=== PATIENT | male | born 1945 | race Two or more races ===

== ENCOUNTER 2024-07-11 02:39 | Emergency (ER) | payer MEDICARE, MEDICAID, SELFPAY ==
[2024-07-11 02:46] VITALS: BP 115/61; PULSE 71; PULSE 84; RESP 18; TEMP 36.8; O2SAT 100; O2SAT 98; BMI 21.7
--- NOTE | 2024-07-11 03:05 | XR_ITS ---
Examination: CT cervical spine without contrast 2-D sagittal reconstructions 2-D coronal reconstructions 3-D reconstructions. Exam date and time:July 11, 2024 0352 hrs. Indications: Ground-level fall today with injury to the neck, neck pain CTDI:vol (mGy) 14.36 DLP: (mGycm) 334 Technique: Multiple 2 mm axial sections of the cervical spine have been obtained. The coronal and sagittal reconstructions have been obtained. 3-D reconstructions have been obtained. Low dose protocols were performed. One or more of the following dose reduction techniques were used; automated exposure control, adjustment of the mA and/or KV according to patient size, use of iterative reconstruction technique. Findings: Axial sections demonstrate intact base of the skull. Grade 1 anterolisthesis C5 on C6 Advanced degenerative disc disease C5-C6, C6-C7 C1 exhibit satisfactory relationship to the odontoid. No acute cervical vertebral body fracture seen. Alignment posterior spinous processes satisfactory. Impression: No acute cervical fracture.
--- NOTE | 2024-07-11 03:05 | XR_ITS ---
Examination: CT brain head without contrast. 2-D sagittal coronal reconstructions Date and time of exam:July 11, 2024 0350 hrs. Indications: Ground-level fall 2 hours ago with injury to the head, head pain CTDI: vol (mGy):49.40 DLP: (mGycm):974 Technique: Multiple CT axial sections of the brain have been obtained, 5 mm slice thickness. Contrast has not been administered. 2-D sagittal, coronal reconstructions have been obtained Low dose protocols were performed. One or more of the following dose reduction techniques were used; automated exposure control, adjustment of the mA and/or KV according to patient size, use of iterative reconstruction technique. Findings: No significant ventricular enlargement. Intra-axial or extra-axial hemorrhage density is not seen. No mass effect or midline shift Basal cisterns are not remarkable. Fourth ventricle is midline. Cranial vault intact. Impression: Negative for acute hemorrhage, mass effect or midline shift
--- NOTE | 2024-07-11 03:13 | PD.EDRME ---
Rapid Medical Screening Exam RME Arrival date/time: 07/11/24 02:39 78 year old male present to ED for c/o of head injury today I have greeted and performed a focused initial assessment of this patient. A comprehensive ED assessment and evaluation of the patient, analysis of all test results, and completion of the medical decision making process will be conducted by additional ED providers. Chief Complaint: Fall Time Seen by Provider: 07/11/24 03:02 Vital signs: Vital Signs Temperature 98.2 F 07/11/24 02:46 Pulse Rate 71 07/11/24 02:46 Respiratory Rate 18 07/11/24 02:46 Blood Pressure 115/61 07/11/24 02:46 Pulse Oximetry (%) 100 07/11/24 02:46 Oxygen Delivery Method Room Air 07/11/24 02:46
[2024-07-11 03:26] VITALS: BP 130/81; PULSE 67; RESP 18; O2SAT 98
--- NOTE | 2024-07-11 03:36 | PC.NURSE ---
PT PLACED IN GOWN AND ASSESSED.PT STATES HE WAS AMBULATING AT HOME WHEN HE TRIPPED OVER THE LEG OF A CHAIR AND FELL AND HIT THE BACK OF HIS HEAD. PT DENIES LOC, ANY OTHER PAIN, AND BLOOD THINNERS. PT ALERT AND ORIENTED. PT WAITING FOR CT OF HEAD. WILL CONTINUE WITH PLAN OF CARE
--- NOTE | 2024-07-11 04:40 | PRELIM_ITS ---
CT scan of the head without intravenous contrast (axial sections with sagittal and coronal reformats) July 11, 2024 at 0350 hoursClinical History: Head injury.Comparison: No prior study is available for comparison. Findings:There is no evidence of intracranial hemorrhage, mass effect or midline jarvis ft. There are periventricular white matter hypodensities, compatible with chronic small vessel ischem ia. There is moderate volume loss. The calvarium is intact. The mastoid air cells are clear. There is mild mucosal thickening in the left maxillary sinus.Impression:No evidence of intracranial hemorrhag e, midline shift or calvarial fracture. Periventricular chronic small vessel ischemia and volume loss . Report Electronically Signed By: Murphy Perry 07/11/2024 4:40:11 AM [EST]
--- NOTE | 2024-07-11 04:43 | PRELIM_ITS ---
CT scan of the cervical spine without intravenous contrast (axial sections with sagittal and coronal reformats) July 11, 2024 at 0352 hours Clinical History: Head injury status post glf today. Jagjit risrupert: No prior study is available for comparison. Findings:There is no fracture or subluxation. Marleny re degenerative changes are noted in the form of multilevel marginal osteophytes, decreased disc spac es, facet arthropathy and fusion of the C5-T1 vertebral bodies causing grade I anterolisthesis of C5 over C6, moderate spinal canal narrowing and severe bilateral neural foraminal narrowing. Posterior l ongitudinal ligamentous ossification is noted from ??2 through ??3 levels. There are chronic deformi ties of the vertebral bodies of the cervical and thoracic spine. The prevertebral soft tissues are un remarkable.Impression:No evidence of fracture or subluxation.Degenerative changes as described. Repo rt Electronically Signed By: Murphy Perry 07/11/2024 4:43:19 AM [EST]
--- NOTE | 2024-07-11 05:23 | EDNOTE_ITS ---
ED Fall Injury RME/HPI General Chief Complaint: Fall Stated Complaint: FALL Time Seen by Provider: 07/11/24 03:02 Source: patient and EMS Arrival date/time: 07/11/24 02:39 Mode of arrival: EMS Limitations: no limitations RME / HPI RME / HPI Narrative: 07/11/24 02:39 78 year old male present to ED for c/o of head injury today I have greeted and performed a focused initial assessment of this patient. A comprehensive ED assessment and evaluation of the patient, analysis of all test results, and completion of the medical decision making process will be conducted by additional ED providers. Dr. Campa?s Main ED Evaluation: 78-year-old otherwise healthy male who has chronic back problems and range of motion issues with his left leg, where he has recently moved and has now found himself sleeping on the floor upon getting up from the floor. He wasn?t stable on his left leg and then fell backwards, hitting his head. He denies loss of consciousness. He does not take blood thinners. He denies neck pain. Related Data Previous Rx's ?Medication ?Instructions ?Recorded acetaminophen 500 mg capsule 500 mg PO Q6H PRN pain #30 caps 07/09/24 Allergies Allergy/AdvReac Type Severity Reaction Status Date / Time ibuprofen [From Motrin] Allergy Verified 07/11/24 02:54 Review of Systems Review of Systems Systems Reviewed: All systems reviewed, normal except as documented Past Medical History Past Medical History CARDIAC: Negative Congestive Heart Failure RESPIRATORY: Negative Chronic Obstructive Pulmonary Disease (COPD) GASTROINTESTINAL: Positive Ulcer GENITOURINARY: Negative Renal Disease MUSCULOSKELETAL: Positive Gout ENDOCRINE: Negative Diabetes Mellitus Type 1 or Diabetes Mellitus Type 2 Social History SMOKING STATUS: Never smoker ED Exam Narrative Physical exam: GENERAL APPEARANCE: AxOx4, generally well-appearing, no acute distress. HEENT: NC, AT. MMM. EOMI, clear conjunctiva, oropharynx clear. NECK: Supple without lymphadenopathy. No stiffness or restricted ROM. 3 cm laceration to his mid occipital/scapular neck, no pain or tenderness HEART: Normal rate and regular rhythm, normal S1/S1, no m/r/g LUNGS: CTAB, moving air well. No crackles or wheezes are heard. ABDOMEN: Soft, nontender, nondistended with good bowel sounds heard. BACK: No midline C/T/L spine pain or deformity, No CVAT, no obvious deformity. EXTREMITIES: Without cyanosis, clubbing or edema. MUSCULOSKELETAL: FROM of all major joints, no chest tenderness NEUROLOGICAL: Grossly nonfocal. Alert and oriented, moving all 4 extremities. CN not formally tested but appear grossly intact. Observed to ambulate with normal gait. Skin: Warm and dry without any rash. General Limitations: Present no limitations Course Quality Measures none Orders Category Date Time Status EKG (ED ONLY) *Do not use* NOW Care 07/11/24 03:[address] cervical spine wo con Stat Exams 07/11/24 03:[address] head/brain wo con Stat Exams 07/11/24 03:05 Completed EKG (ED Only) Stat Exams 07/11/24 03:02 Ordered Vital Signs Vital signs: Vital Signs Temperature 98.2 F 07/11/24 02:46 Pulse Rate 71 07/11/24 02:46 Respiratory Rate 18 07/11/24 02:46 Blood Pressure 115/61 07/11/24 02:46 Pulse Oximetry (%) 100 07/11/24 02:46 Oxygen Delivery Method Room Air 07/11/24 02:46 Procedures -ED Procedure Comment Three manolo applied to his to his mid occipital/scapular neck, no local anesthesia lidocaine was required, tolerated procedure well, no complications. Fall MDM Narrative MDM Narrative:: I have spoken with the patient and discussed today?s findings, in addition to providing specific details for the plan of care. Questions are answered and there is an agreement with the plan. Re-assessment at the time of disposition demonstrates that the patient is in no acute distress. The patient has remained stable throughout the entire ED visit and is without objective evidence for acute process requiring urgent interventio n or hospitalization. The patient is stable for discharge; counseling is provided and documented as above, discussed symptomatic treatment and specific conditions for return. Scribe Attestation: I, Deanne Londono, am scribing for and in the presence of Dr. Campa. Provider Notation: Although this document has been carefully reviewed, there may still be some phonetic and other typographical errors. These errors are purely grammatical due to imperfections in the software program and should not be construed in any way to compromise the substance of the patient's medical care during this visit. Patient data External records reviewed:: [facility] previous records Clinical information provided by:: patient Social determinants that could affect healthcare access:: none Patient has the following chronic illnesses:: See narrative How is presenting disease/condition affected by chronic disease/condition?: uneffected by Evaluation data The following diagnostics were reviewed and interpreted by me:: radiology exam(s) Lab and/or radiology exams considered but not ordered:: None Interpretation Summary: CT scan of the head without intravenous contrast (axial sections with sagittal and coronal reformats) July 11, 2024 at 0350 hours Clinical History: Head injury. Comparison: No prior study is available for comparison. Findings: There is no evidence of intracranial hemorrhage, mass effect or midline shift. There are periventricular white matter hypodensities, compatible with chronic small vessel ischemia. There is moderate volume loss. The calvarium is intact. The mastoid air cells are clear. There is mild mucosal thickening in the left maxillary sinus. Impression: No evidence of intracranial hemorrhage, midline shift or calvarial fracture. Periventricular chronic small vessel ischemia and volume loss. Report Electronically Signed By: Murphy Perry 07/11/2024 4:40:11 AM [EST] CT scan of the cervical spine without intravenous contrast (axial sections with sagittal and coronal reformats) July 11, 2024 at 0352 hours Clinical History: Head injury status post glf today. Comparison: No prior study is available for comparison. Findings: There is no fracture or subluxation. Severe degenerative changes are noted in the form of multilevel marginal osteophytes, decreased disc spaces, facet arthropathy and fusion of the C5-T1 vertebral bodies causing grade I anterolisthesis of C5 over C6, moderate spinal canal narrowing and severe bilateral neural foraminal narrowing. Posterior longitudinal ligamentous ossification is noted from ??2 through ??3 levels. There are chronic deformities of the vertebral bodies of the cervical and thoracic spine. The prevertebral soft tissues are unremarkable. Impression: No evidence of fracture or subluxation. Degenerative changes as described. Report Electronically Signed By: Murphy Perry 07/11/2024 4:43:19 AM [EST] Medications / Prescriptions Medications or Prescriptions considered but not ordered:: None Medication administrations:: As above, if any Consultations Consultation(s) initiated? (list below): No Diagnosis Fall Differential Diagnosis: syncope, concussion with loss of consciousness and concussion without loss of consciousness Most likely diagnosis given after review of the tests above:: Closed head injury, Laceration of scalp Admission Indicated Admission indicated?: not indicated Admission Request Was there a request for admission?: No Disposition Plan Disposition Plan: Discharge Discharge Attestation Discharge Attestation: The patient and all family members were given an opportunity to ask questions and understood the discharge instructions. Discharge instructions specifically effects, indications for sooner follow up or return to the emergency department, and the expected course of current diagnosis. Patient condition: Stable Discharge Plan Plan Patient Disposition: HOME (Self Care) Prescriptions/Referrals Prescriptions/Med Rec: No Action acetaminophen 500 mg capsule 500 mg PO Q6H PRN (Reason: pain) Qty: 30 0RF Problem List Clinical Impression: Closed head injury, Laceration of scalp Patient/Caregiver Discharge Instructions Education Materials: ED Head Injury (Adult), ED Laceration Scalp Sutures or ... Additional Instructions: Follow-up with your primary care doctor in 7 days for removal of the manolo. You can return to the emergency department sooner if symptoms worsen or if you notice any new, concerning issues. Print Language: Citizen [place] Stand Alone Forms: Gabriella Award Info., Patient Portal Info Letter
[2024-07-11 06:02] VITALS: BP 125/64; PULSE 67; RESP 18; O2SAT 95
== END 2024-07-11 06:05 | disposition home or self-care (01) ==
LOC: SERX 05:16
PROVIDERS: Emergency Provider Emergency Medicine; PCP Family Medicine
DX: S01.01XA Laceration without foreign body of scalp, initial encounter (principal); I67.82 Cerebral ischemia; W19.XXXA Unspecified fall, initial encounter
CPT/HCPCS: 12002; 70450; 72125; 93005; 99284

== ENCOUNTER 2024-07-17 08:37 | Emergency (ER) | payer OTHER, SELFPAY ==
[2024-07-17 08:38] VITALS: BMI 24.0
[2024-07-17 09:01] VITALS: BP 137/66; PULSE 78; RESP 18; TEMP 36.9; O2SAT 95
--- NOTE | 2024-07-17 09:01 | EDNOTE_ITS ---
ED General RME/HPI General Chief complaint: Wound Recheck / Suture Removal Stated complaint: wants stiches removed from his head Time Seen by Provider: 07/17/24 08:56 Arrival date/time: 07/17/24 08:37 RME / HPI RME / HPI narrative: 78-year-old male who is known to me for recent closed head injury from a ground- level fall who now returns for staple removal. He has had no issues with the manolo, he has been able to wash his hair appropriately in his shower. Related Data Previous Rx's ?Medication ?Instructions ?Recorded acetaminophen 500 mg capsule 500 mg PO Q6H PRN pain #30 caps 07/09/24 Allergies Allergy/AdvReac Type Severity Reaction Status Date / Time ibuprofen [From Motrin] Allergy Verified 07/17/24 08:39 Review of Systems Review of Systems Systems Reviewed: All systems reviewed, normal except as documented ED Exam Narrative Physical exam: GENERAL APPEARANCE: AxOx4, generally well-appearing, no acute distress. NEUROLOGICAL: Grossly nonfocal. Alert and oriented, moving all 4 extremities. CN not formally tested but appear grossly intact. Observed to ambulate with normal gait. Skin: Warm and dry without any rash. Right occipital scalp laceration is clean dry and intact with 3 manolo removed by me Course Quality Measures none Vital Signs Vital signs: Vital Signs Temperature 98.4 F 07/17/24 09:01 Pulse Rate 78 07/17/24 09:01 Respiratory Rate 18 07/17/24 09:01 Blood Pressure 137/66 H 07/17/24 09:01 Pulse Oximetry (%) 95 07/17/24 09:01 Oxygen Delivery Method Room Air 07/17/24 09:01 [facility] Patient data External records reviewed:: [facility] previous records Clinical information provided by:: patient Social determinants that could affect healthcare access:: none Patient has the following chronic illnesses:: None How is presenting disease/condition affected by chronic disease/condition?: no chronic disease Evaluation data The following diagnostics were reviewed and interpreted by me:: other (specify) Lab and/or radiology exams considered but not ordered:: Not applicable Interpretation Summary: None Medications Medications considered but not ordered:: None Medication administrations:: None Consultations Consultation(s) initiated? (list below): No Diagnosis Differential Diagnosis ED Complaint MDM: Scalp laceration, skin infection, wound dehiscence Most likely diagnosis given after review of the tests above:: See below Admission Indicated Admission indicated?: not indicated Explain why admission is indicated or not indicated:: Uncomplicated visit for staple removal without issues or symptoms Admission Request Was there a request for admission?: No Disposition Plan Disposition Plan: Discharge Discharge Attestation Discharge Attestation: The patient and all family members were given an opportunity to ask questions and understood the discharge instructions. Discharge instructions specifically effects, indications for sooner follow up or return to the emergency department, and the expected course of current diagnosis. Patient condition: Stable Medical Decision Making Differential Diagnosis Differential Diagnosis: Scalp laceration, skin infection, wound dehiscence Discharge Plan Plan Patient Disposition: HOME (Self Care) Prescriptions/Referrals Prescriptions/Med Rec: No Action acetaminophen 500 mg capsule 500 mg PO Q6H PRN (Reason: pain) Qty: 30 0RF Problem List Clinical Impression: Encounter for removal of manolo Patient/Caregiver Discharge Instructions Education Materials: ED Stitches/Staple Removal No ... Additional Instructions: Follow-up with your primary care doctor as needed Print Language: Indonesian Stand Alone Forms: Gabriella Award Info., Patient Portal Info Letter
== END 2024-07-17 09:16 | disposition home or self-care (01) ==
LOC: SERX 09:06
PROVIDERS: Emergency Provider Emergency Medicine; PCP Family Medicine
DX: S01.01XD Laceration without foreign body of scalp, subsequent encounter (principal); W18.30XD Fall on same level, unspecified, subsequent encounter
CPT/HCPCS: 99282